=== PATIENT | female | born 1965 | race Caucasian/White ===

== ENCOUNTER 2017-01-25 08:33 | Emergency (ER) | payer OTHER ==
[~2017-01-25] VITALS: Ht 157.4 cm; Wt 53.5 kg
[~2017-01-25 08:33] MED LIST: ALBUTEROL0.09 MG/A2 INH; ATARAX25 MG PO; ATIVAN; ATIVAN0.5 MG PO; ATIVAN1 MG PO; BACTRIM DS 8001 TA1 PO; CELEXA40 MG PO; CIPRO250 MG PO; CIPRO500 MG PO; CLARITIN-D 12 H1 TAB PO; CLARITIN10 MG PO; HYCODAN 1.5 MG480 M1 PO; HYDROCODONE BIT1 T11 PO; IBU-8800 MG PO; KEFLEX500 MG PO; MEDROL DOSEPAK4 MG PO; MOTRIN800 MG PO; NAFTIN1% TP; NEURONTIN300 MG PO; NORCO 5-325 TA1 EACH PO; PLAQUENIL200 MG PO; PREDNICOT20 MG PO; PREDNISONE20 MG PO; PREMARIN0.625 MG PO; PROVENTIL0.09 MG/AC IH; PROZAC40 MG PO; PYRIDIUM200 MG PO; TESSALON PERLE100 M1 PO; TIZANIDINE2 MG PO; TOBRADEX 0.1%-0.5 ML OPH; ULTRAM50 MG PO; VIBRAMYCIN100 MG PO; VICODIN ES 7501 TAB PO; VISTARIL25 MG PO; VOLTAREN50 M1 PO; ZITHROMAX Z PA250 MG PO; ZYRTEC10 M1 PO; [UNRECOGNIZED DRUG - OTHER] TP
[2017-01-25] MEDS ORDERED: NAPROSYN500 MG PO (08:56)
[2017-01-25] MEDS ORDERED: CYCLOBENZAPRINE10 MG PO (08:56)
== END 2017-01-25 09:14 | disposition home or self-care (01) ==
LOC: ED 08:33
DX: M54.2 Cervicalgia (principal); Z88.0 Allergy status to penicillin; Z88.2 Allergy status to sulfonamides; Z79.899 Other long term (current) drug therapy

== ENCOUNTER 2017-01-30 13:31 | Emergency (ER) | payer OTHER ==
[~2017-01-30] VITALS: Ht 157.4 cm; Wt 53.5 kg
[~2017-01-30 13:31] MED LIST changes: +CYCLOBENZAPRINE10 MG PO; +NAPROSYN500 MG PO
== END 2017-01-30 15:40 | disposition home or self-care (01) ==
LOC: ED 13:31
DX: M54.2 Cervicalgia (principal); M25.512 Pain in left shoulder; G89.29 Other chronic pain; Z79.899 Other long term (current) drug therapy; Z88.0 Allergy status to penicillin; Z88.2 Allergy status to sulfonamides

== ENCOUNTER 2019-04-02 17:23 | Emergency (ER) | payer OTHER ==
[~2019-04-02] VITALS: Ht 152.4 cm; Wt 71.7 kg
[~2019-04-02 17:23] MED LIST changes: +ARIPIPRAZOLE15 MG PO; +CLINDAMYCIN HC300 MG PO; +CLONAZEPAM1 MG PO; +DOXEPIN HCL25 MG PO; +LAMOTRIGINE100 MG PO
[2019-04-02] MEDS ORDERED: NAPROSYN500 MG PO (18:11)
[2019-04-02] MEDS ORDERED: CLEOCIN HCL150 MG PO (18:11)
== END 2019-04-02 18:16 | disposition home or self-care (01) ==
LOC: ED 17:23
DX: K04.7 Periapical abscess without sinus (principal); Z88.0 Allergy status to penicillin; Z88.2 Allergy status to sulfonamides; Z79.2 Long term (current) use of antibiotics; Z79.899 Other long term (current) drug therapy

== ENCOUNTER 2019-09-15 08:46 | Emergency (ER) | payer OTHER ==
[~2019-09-15] VITALS: Ht 160 cm; Wt 72.6 kg
[~2019-09-15 08:46] MED LIST changes: +CLEOCIN HCL150 MG PO
[2019-09-15] MEDS ORDERED: CLINDAMYCIN HC300 MG PO (08:58)
[2019-09-15] MEDS ORDERED: Motrin,Rufen800 MG PO (09:01)
== END 2019-09-15 09:01 | disposition home or self-care (01) ==
LOC: ED 08:46
DX: K04.7 Periapical abscess without sinus (principal); K02.9 Dental caries, unspecified; G43.909 Migraine, unspecified, not intractable, without status migrainosus; M79.7 Fibromyalgia; Z88.0 Allergy status to penicillin; Z88.2 Allergy status to sulfonamides; Z79.899 Other long term (current) drug therapy

== ENCOUNTER 2019-11-14 15:00 | Inpatient (IN) | payer OTHER ==
[~2019-11-14] VITALS: Ht 157.4 cm; Wt 75.6 kg
[~2019-11-14 15:00] MED LIST changes: +Motrin,Rufen800 MG PO
[2019-11-14 15:09] VITALS: BP 134/67
--- NOTE | 2019-11-14 15:12 | NUR ---
PATIENT DENIES ANY WOUNDS A&OX4.
--- NOTE | 2019-11-14 15:13 | NUR ---
PATIENT NC INCREASED FROM 2L TO 3L AT THIS TIME.
[2019-11-14 15:36] LABS: BASO # 0.1 10*3/uL (0.0-0.1); BASO % 0.3 % (0.0-1.0); EOS # 0.2 10*3/uL (0.0-0.4); EOS % 1.1 % (1.0-4.0); HEMOGLOBIN 13.9 g/dl (12.0-16.0); LYMPH # 1.9 10*3/uL (1.3-4.4); LYMPH % 10.1 % (27.0-41.0); MEAN CELL VOLUME 97.3 fl (81.0-99.0); MEAN CORPUSCULAR HGB 31.4 pg (27.0-31.0); MEAN CORPUSCULAR HGB CONC 32.3 g/dl (33.0-37.0); MEAN PLATELET VOLUME 11.3 fl (9.6-12.3); MONO % 5.7 % (3.0-9.0); NEUT # 15.1 10*3/uL (2.3-7.9); NEUT % 82.3 % (47.0-73.0); PLATELET COUNT AUTOMATED 313 10*3/uL (130-400); RED BLOOD COUNT 4.42 10*6/uL (4.10-5.10); RED CELL DISTRI WIDTH 15.3 % (0-14.5); WHITE BLOOD COUNT 18.3 10*3/uL (4.8-10.8)
[2019-11-14 15:48] LABS: ACT PARTIAL THROMBO TIME 33.1 SECONDS (20.0-32.1); INTERNATIONAL NORM RATIO 0.9 (2.0-3.5)
[2019-11-14 15:54] LABS: ALBUMIN 3.3 gm/dl (3.1-4.5); ALKALINE PHOSPHATASE 98 U/L (45-117); BUN 12 mg/dl (7-24); CHLORIDE 105 mmol/L (98-107); CREATININE 1.13 mg/dL (0.55-1.02); POTASSIUM 3.6 mmol/L (3.5-5.1); SGOT/AST 34 IU/L (3-35); SGPT/ALT 23 U/L (12-78); SODIUM 137 mmol/L (136-145); TOTAL PROTEIN 8.8 gm/dL (6.4-8.2)
[2019-11-14 15:56] LABS: TROPONIN I < 0.015 ng/ml (<0.045)
[2019-11-14 16:29] LABS: ABG BASE EXCESS -1.4 mmol/L (-2.0-2.0); ARTERIAL BLOOD GAS PH 7.421 (7.35-7.45)
--- NOTE | 2019-11-14 17:20 | NUR ---
CCA 54, admitted to , under the services of ARCHIE Storm DO with a diagnosis of COPD, INFLUENZA A. Chief complaint is SOB, CHEST PAIN. Patient arrived via ambulatory from ER. Monitor applied. Initial assessment completed. Vital signs taken and recorded. ARCHIE STORM DO notified of admission to the unit. Orders received. See assessment for past medical history, medications and allergies. Patient and/or family oriented to unit. [address] visitation policy reviewed. Clothing/patient valuable form completed. CARMINE MARTINEZ
[2019-11-14 17:30] VITALS: BP 130/74
[2019-11-14] MEDS ORDERED: ESCITALOPRAM OX20 MG PO (17:35)
[2019-11-14] MEDS ORDERED: ASPIRIN CHEWABL81 MG PO (17:36)
--- NOTE | 2019-11-14 17:36 | NUR ---
MEDS REVIEWED WITH PATIENT AND UPDATED PER POLICY. UNABLE TO VERIFY WITH PHARMACY DUE TO PHARMACY BEING CLOSED AT THIS TIME.
--- NOTE | 2019-11-14 17:45 | NUR ---
NOTIFIED OF CONSULT.
--- NOTE | 2019-11-14 17:55 | NUR ---
PT MEDICATED WITH PO NORCO AND IV ZOFRAN PER PRN ORDER FOR C/O GENERALIZED DISCOMFORT AND NAUSEA. WILL MONITOR EFFECTIVENESS. IV ATB INFUSING PER ORDER. WILL MONITOR. CALL LIGHT WITHIN REACH.
[2019-11-14] MEDS ORDERED: 'CLONIDINE0.1 MG PO (18:08)
[2019-11-14] MEDS ORDERED: KLONOPIN2 M1 PO (18:10)
[2019-11-14 20:00] VITALS: BP 126/76
--- NOTE | 2019-11-14 23:42 | NUR ---
PT UPSET ABOUT HOME MEDS NOT BEING ORDERED. DISCUSSED PT'S REQUEST FOR HOME MEDS WITH . AWARE OF NEED TO VERIFY HOME MEDS WITH PHARMACY. PT REQUESTING DOXEPIN AND CLONIDINE TONIGHT. OKAY TO ORDER 1X DOSE OF THESE MEDICATIONS.
[2019-11-15] VITALS: BP 109/69
[2019-11-15 01:06] LABS: BILIRUBIN NEGATIVE (NEGATIVE); BLOOD 3+ (NEGATIVE); CLARITY CLEAR (CLEAR); COLOR STRAW (YELLOW); GLUCOSE NEGATIVE (NEGATIVE); KETONE NEGATIVE (NEGATIVE); LEUKO ESTERASE NEGATIVE (NEGATIVE); NITRITE NEGATIVE (NEGATIVE); PH 6.5 (5.0-9.0); SPECIFIC GRAVITY 1.005 (1.005-1.030); UROBILINOGEN 0.2 E.U./dl (0.2-1.0)
[2019-11-15 01:08] LABS: BACTERIA 2+; RBC 21-30 rbc/hpf (0-2)
--- NOTE | 2019-11-15 05:23 | NUR ---
PT MEDICATED WITH NORCO PER PRN ORDER FOR C/O PAIN IN RIBS FROM COUGHING AND HEADACHE RATED 5/10. WILL MONITOR EFFECTIVENESS.
[2019-11-15 06:15] LABS: BUN 12 mg/dl (7-24); CHLORIDE 110 mmol/L (98-107); CREATININE 0.87 mg/dL (0.55-1.02); POTASSIUM 4.3 mmol/L (3.5-5.1); SODIUM 141 mmol/L (136-145)
[2019-11-15 06:23] LABS: HEMOGLOBIN 11.9 g/dl (12.0-16.0); MEAN CELL VOLUME 97.6 fl (81.0-99.0); MEAN CORPUSCULAR HGB 31.4 pg (27.0-31.0); MEAN CORPUSCULAR HGB CONC 32.2 g/dl (33.0-37.0); MEAN PLATELET VOLUME 11.3 fl (9.6-12.3); PLATELET COUNT AUTOMATED 294 10*3/uL (130-400); RED BLOOD COUNT 3.79 10*6/uL (4.10-5.10); RED CELL DISTRI WIDTH 15.4 % (0-14.5); WHITE BLOOD COUNT 18.7 10*3/uL (4.8-10.8)
[2019-11-15 06:46] LABS: PLATELET SUFFICIENCY NORMAL (NORMAL); TOTAL CELLS COUNTED 100 #CELLS
[2019-11-15 08:05] VITALS: BP 102/56
--- NOTE | 2019-11-15 09:00 | NUR ---
[employer] in to talk to patient. Patient states lives at home with boyfriend. There are no steps in the home. Physician: dariela chandler [facility]: [facility] Home health services: none Patient's level of ADLs: INDEPENDENT Patient has working utilities: all working DME: none Follow-up physician's appointment after d/c: will be made by hospitalist nurse director upon discharge Does patient want to access PORTAL?: no Discharge plan discussed with patient, she states she lives at home with boyfriend, she is independent in adls and ambulation, she states she will return home when medically stable and denies any home needs. JAMIE MCCALLUM
--- NOTE | 2019-11-15 10:35 | NUR ---
[place] given for patient c/o pain in her ribs and back. Will monitor.
[2019-11-15 12:00] VITALS: BP 113/60
--- NOTE | 2019-11-15 12:10 | NUR ---
Spoke with pharmacist at [facility] to update patients home med list.
[2019-11-15] MEDS ORDERED: PROTONIX40 MG PO (12:17)
[2019-11-15] MEDS ORDERED: NEURONTIN300 MG PO (12:18)
[2019-11-15] MEDS ORDERED: TRAMADOL HCL50 MG PO (12:19)
[2019-11-15] MEDS ORDERED: SOMA350 MG PO (12:22)
[2019-11-15] MEDS ORDERED: PROVERA10 MG PO (12:22)
--- NOTE | 2019-11-15 12:25 | NUR ---
Notified of updated med list see new orders.
[2019-11-15 16:00] VITALS: BP 108/64
--- NOTE | 2019-11-15 19:58 | NUR ---
IV ABX INFUSION COMPLETE. PT DENIES ANY NEEDS AT PRESENT TIME. WILL MONITOR. CALL LIGHT IN REACH. O2 IN USE.
[2019-11-15 20:00] VITALS: BP 102/61
[2019-11-15 22:45] VITALS: BP 108/64
[2019-11-16] VITALS: BP 111/62
--- NOTE | 2019-11-16 04:27 | NUR ---
ULTRAM GIVEN PER PATIENT REQUEST FOR COMPLAINTS OF PAIN. WILL ASSESS EFFECTIVENESS.
[2019-11-16 07:02] LABS: BASO % 0.1 % (0.0-1.0); HEMATOCRIT 36.1 % (37.0-47.0); HEMOGLOBIN 11.2 g/dl (12.0-16.0); LYMPH # 1.9 10*3/uL (1.3-4.4); LYMPH % 14.6 % (27.0-41.0); MEAN CELL VOLUME 100.3 fl (81.0-99.0); MEAN CORPUSCULAR HGB 31.1 pg (27.0-31.0); MEAN PLATELET VOLUME 11.4 fl (9.6-12.3); MONO # 0.6 10*3/uL (0.1-1.0); MONO % 4.8 % (3.0-9.0); NEUT # 10.4 10*3/uL (2.3-7.9); NEUT % 79.6 % (47.0-73.0); PLATELET COUNT AUTOMATED 284 10*3/uL (130-400); RED CELL DISTRI WIDTH 15.9 % (0-14.5); WHITE BLOOD COUNT 13.1 10*3/uL (4.8-10.8)
[2019-11-16 07:12] LABS: BUN 20 mg/dl (7-24); CHLORIDE 106 mmol/L (98-107); CREATININE 0.79 mg/dL (0.55-1.02); POTASSIUM 4.9 mmol/L (3.5-5.1); SODIUM 138 mmol/L (136-145)
--- NOTE | 2019-11-16 08:24 | NUR ---
KLONOPIN GIVEN FOR C/O ANXIETY. WILL MONITOR.
--- NOTE | 2019-11-16 09:00 | NUR ---
case management visits with patient, she stated she will return home when medically stable and denies any home needs, case management will follow
--- NOTE | 2019-11-16 09:30 | NUR ---
KLONOPIN EFFECTIVE PER PT.
--- NOTE | 2019-11-16 12:57 | NUR ---
MEDICATED WITH ULTRAM PO PER PRN ORDER, SEE EMAR. FOR C/O HEADACHE, RATES PAIN 9 ON PAIN SCALE 0-10. CALL LIGHT IN REACH.
--- NOTE | 2019-11-16 14:00 | NUR ---
ULTRAM EFFECTIVE PER PT.
[2019-11-16 16:00] VITALS: BP 109/63
[2019-11-16 20:00] VITALS: BP 121/71
[2019-11-17] VITALS: BP 116/66
--- NOTE | 2019-11-17 03:43 | NUR ---
PT MEDICATED WITH PO ULTRAM PER PRN ORDER FOR C/O HEADACHE AND RIB PAIN RATED 9/10. WILL MONITOR. CALL LIGHT IN REACH.
--- NOTE | 2019-11-17 05:00 | NUR ---
EARLIER ULTRAM EFFECTIVE PER PT. FRESH GINGERALE AND ICE PROVIDED PER PT REQUEST. DENIES ANY OTHER NEEDS AT PRESENT TIME. WILL MONITOR. CALL LIGHT IN REACH.
[2019-11-17 08:00] VITALS: BP 125/61; BP 130/63
--- NOTE | 2019-11-17 08:54 | NUR ---
MEDICATED WITH PRN KLONOPIN PER ORDER AND REQUEST.
--- NOTE | 2019-11-17 09:00 | NUR ---
case management visits with patient, she states she will return home when medically stable and denies any home needs
[2019-11-17 12:00] VITALS: BP 119/78
--- NOTE | 2019-11-17 13:06 | NUR ---
MEDICATED WITH PRN ULTRAM AND TESSALON KEAGAN PER ORDERS AND REQUEST.
[2019-11-17 16:00] VITALS: BP 129/74
[2019-11-17 20:00] VITALS: BP 130/81
--- NOTE | 2019-11-17 22:10 | NUR ---
ULTRAM GIVEN PER PATIENT REQUEST FOR BREAKTHROUGH PAIN IN HER HEAD RATED 8/10. WILL ASSESS EFFECTIVENESS.
--- NOTE | 2019-11-17 22:52 | NUR ---
KLONOPIN GIVEN PER PATIENT REQUEST FOR COMPLAINTS OF ANXIETY. WILL ASSESS EFFECTIVENESS.
--- NOTE | 2019-11-17 23:51 | NUR ---
ULTRAM AND KLONOPIN EFFECTIVE PER PATIENT. PATIENT RESTING QUIETLY IN BED. NO FURTHER COMPLAINTS. WILL CONTINUE TO MONITOR.
[2019-11-18] VITALS (9 sets, daily range): BP systolic 119–141; BP diastolic 64–86
--- NOTE | 2019-11-18 00:18 | NUR ---
PRN MEDICATIONS EFFECTIVE. PATIENT RESTING QUIETLY IN BED. NO FURTHER COMPLAINTS. WILL CONTINUE TO MONITOR.
--- NOTE | 2019-11-18 00:48 | NUR ---
24 HR chart check completed.
[2019-11-18 06:42] LABS: HEMATOCRIT 34.9 % (37.0-47.0); HEMOGLOBIN 11.2 g/dl (12.0-16.0); MEAN CELL VOLUME 98.3 fl (81.0-99.0); MEAN CORPUSCULAR HGB 31.5 pg (27.0-31.0); MEAN CORPUSCULAR HGB CONC 32.1 g/dl (33.0-37.0); PLATELET COUNT AUTOMATED 295 10*3/uL (130-400); RED BLOOD COUNT 3.55 10*6/uL (4.10-5.10); RED CELL DISTRI WIDTH 15.7 % (0-14.5); WHITE BLOOD COUNT 10.7 10*3/uL (4.8-10.8)
[2019-11-18 07:06] LABS: TOTAL CELLS COUNTED 100 #CELLS
[2019-11-18 07:07] LABS: PLATELET SUFFICIENCY NORMAL (NORMAL); SPHEROCYTES FEW
[2019-11-18 07:23] LABS: CHLORIDE 104 mmol/L (98-107); POTASSIUM 4.8 mmol/L (3.5-5.1); SODIUM 139 mmol/L (136-145)
[2019-11-18 07:28] LABS: BUN 18 mg/dl (7-24); CREATININE 0.93 mg/dL (0.55-1.02)
--- NOTE | 2019-11-18 09:00 | NUR ---
case management visits with patient, she states she will be returning home when stable and denies any home needs
[2019-11-19] VITALS: BP 111/78
--- NOTE | 2019-11-19 02:17 | NUR ---
PRN ULTRAM GIVEN FOR PT COMPLAINTS OF HEADACHE RATING IT 7/10. CALL LIGHT WITHIN REACH, WILL MONITOR
--- NOTE | 2019-11-19 03:07 | NUR ---
PRN MEDICATION APPEARS EFFECTIVE, PT SLEEPING
[2019-11-19 06:24] LABS: HEMATOCRIT 39.6 % (37.0-47.0); HEMOGLOBIN 12.5 g/dl (12.0-16.0); MEAN CELL VOLUME 97.5 fl (81.0-99.0); MEAN CORPUSCULAR HGB 30.8 pg (27.0-31.0); MEAN CORPUSCULAR HGB CONC 31.6 g/dl (33.0-37.0); MEAN PLATELET VOLUME 10.6 fl (9.6-12.3); NUCLEATED RED BLOOD CELL 0.1 % (0.0-0.0); PLATELET COUNT AUTOMATED 341 10*3/uL (130-400); RED BLOOD COUNT 4.06 10*6/uL (4.10-5.10); RED CELL DISTRI WIDTH 15.2 % (0-14.5)
[2019-11-19 06:50] LABS: TOTAL CELLS COUNTED 100 #CELLS
[2019-11-19 06:51] LABS: PLATELET SUFFICIENCY NORMAL (NORMAL); TARGET CELLS FEW
[2019-11-19 06:52] LABS: BUN 20 mg/dl (7-24); CHLORIDE 101 mmol/L (98-107); SODIUM 136 mmol/L (136-145)
--- NOTE | 2019-11-19 07:46 | NUR ---
24 HR CHART CHECK COMPLETE.
[2019-11-19 08:00] VITALS: BP 117/84
--- NOTE | 2019-11-19 08:31 | NUR ---
IN TO SEE PT AT THIS TIME. SHE IS SITTING UP IN BED EATING BREAKFAST AND STATES THAT SHE IS FEELING MUCH BETTER. 2L O2 VIA NC IS IN USE. RESPA RE EASY AND NONLABORED. BED IS LOW, CALL LIGHT WITHIN REACH. WILL CONTINUE TO MONITOR.
--- NOTE | 2019-11-19 09:00 | NUR ---
case management visits with patient, she will return home when medically stable and denies any home needs, case management will follow
--- NOTE | 2019-11-19 10:00 | NUR ---
HOME O2 ASSESSMENT: PRE BP: 121/86, HR 87, RR 20, PULSE OX 90% ON ROOM AIR AT REST. AMBULATED PATIENT 1/2 LAP IN HALLWAY, PULSE OX 87% ON ROOM AIR WHILE AMBULATING. PLACED 2 L/M ON PATIENT, SAT >93%-94% WHILE AMBULATING. POST BP: 133/81, HR 80, RR 20, PULSE OX 96% ON 2 L/M AT REST. RN NOTIFIED.
[2019-11-19 12:00] VITALS: BP 129/75
[2019-11-19 15:04] LABS: ACID FAST SPEC PROCESSING Concentration (.)
[2019-11-19 16:00] VITALS: BP 123/77
[2019-11-19 20:00] VITALS: BP 135/78
--- NOTE | 2019-11-19 21:40 | NUR ---
24 HOUR CHART CHECK COMPLETE
[2019-11-20] VITALS: BP 113/72
[2019-11-20 07:05] LABS: HEMATOCRIT 37.8 % (37.0-47.0); HEMOGLOBIN 12.1 g/dl (12.0-16.0); MEAN CELL VOLUME 97.4 fl (81.0-99.0); MEAN CORPUSCULAR HGB 31.2 pg (27.0-31.0); MEAN PLATELET VOLUME 10.6 fl (9.6-12.3); NUCLEATED RED BLOOD CELL 0.1 % (0.0-0.0); PLATELET COUNT AUTOMATED 346 10*3/uL (130-400); RED BLOOD COUNT 3.88 10*6/uL (4.10-5.10); RED CELL DISTRI WIDTH 15.3 % (0-14.5); WHITE BLOOD COUNT 14.2 10*3/uL (4.8-10.8)
[2019-11-20 07:28] LABS: BUN 23 mg/dl (7-24); CHLORIDE 101 mmol/L (98-107); CREATININE 0.97 mg/dL (0.55-1.02); POTASSIUM 4.6 mmol/L (3.5-5.1); SODIUM 135 mmol/L (136-145)
[2019-11-20 07:44] LABS: PLATELET SUFFICIENCY NORMAL (NORMAL); TOTAL CELLS COUNTED 100 #CELLS
[2019-11-20 08:00] VITALS: BP 134/87
--- NOTE | 2019-11-20 08:15 | NUR ---
PT SAT IS 95%, AT REST, WITH 2L/M NC APPLIED. SAT 95-96%, RA, AT REST. SAT 93%, RA DURING AMBULATION. REQUESTED AMBULATION AND PRESENT DURING AMBULATION. SLIGHT SOB NOTED WHEN BACK TO ROOM, OTHERWISE TOLERATED WELL.
--- NOTE | 2019-11-20 08:30 | NUR ---
Patient resting quietly with no c/o discomfort. Respirations easy and regular. Isolation precautions maintained. Vital signs stable. No overt distress. DEVAN HERNANDEZ R
[2019-11-20] MEDS ORDERED: BENZONATATE100 M1 PO (10:34)
[2019-11-20] MEDS ORDERED: MUCINEX1200 M1 PO (10:34)
[2019-11-20] MEDS ORDERED: PREDNISONE10 MG PO (10:34)
[2019-11-20] MEDS ORDERED: AVPAK AZITHROM250 MG PO (10:34)
--- NOTE | 2019-11-20 10:55 | NUR ---
Discharge instructions reviewed with patient/family. Patient receptive and verbalizes understanding. Follow-up care arranged. Written instructions given to patient/family. DEVAN HERNANDEZ
== END 2019-11-20 10:55 | disposition home or self-care (01) | DRG 871 ==
LOC: ED 15:00 → 4E 16:12 → EDHOLD 16:12 → 4E 16:33 → 5E 11-18 19:21
PROVIDERS: Emergency Medicine; Family Medicine; Internal Medicine Critical Care Medicine; Student in an Organized Health Care Education/Training Program; ADMIT Internal Medicine
PROC: 0BC48ZZ Extirpation of Matter from Right Upper Lobe Bronchus, Via Natural or Artificial Opening Endoscopic (ICD-10-PCS; principal; 2019-11-18)
PROC: 0BC98ZZ Extirpation of Matter from Lingula Bronchus, Via Natural or Artificial Opening Endoscopic (ICD-10-PCS; principal; 2019-11-18)
PROC: 0BC58ZZ Extirpation of Matter from Right Middle Lobe Bronchus, Via Natural or Artificial Opening Endoscopic (ICD-10-PCS; principal; 2019-11-18)
PROC: 0BC18ZZ Extirpation of Matter from Trachea, Via Natural or Artificial Opening Endoscopic (ICD-10-PCS; principal; 2019-11-18)
PROC: 0BCB8ZZ Extirpation of Matter from Left Lower Lobe Bronchus, Via Natural or Artificial Opening Endoscopic (ICD-10-PCS; principal; 2019-11-18)
PROC: 0BC38ZZ Extirpation of Matter from Right Main Bronchus, Via Natural or Artificial Opening Endoscopic (ICD-10-PCS; principal; 2019-11-18)
PROC: 0BC88ZZ Extirpation of Matter from Left Upper Lobe Bronchus, Via Natural or Artificial Opening Endoscopic (ICD-10-PCS; principal; 2019-11-18)
PROC: 0BC78ZZ Extirpation of Matter from Left Main Bronchus, Via Natural or Artificial Opening Endoscopic (ICD-10-PCS; principal; 2019-11-18)
PROC: 0BC68ZZ Extirpation of Matter from Right Lower Lobe Bronchus, Via Natural or Artificial Opening Endoscopic (ICD-10-PCS; principal; 2019-11-18)
DX: A41.9 Sepsis, unspecified organism (principal); N17.0 Acute kidney failure with tubular necrosis; J44.0 Chronic obstructive pulmonary disease with (acute) lower respiratory infection; J44.1 Chronic obstructive pulmonary disease with (acute) exacerbation; J45.901 Unspecified asthma with (acute) exacerbation; E87.1 Hypo-osmolality and hyponatremia; E87.8 Other disorders of electrolyte and fluid balance, not elsewhere classified; F17.200 Nicotine dependence, unspecified, uncomplicated; E66.9 Obesity, unspecified; R65.20 Severe sepsis without septic shock; J20.9 Acute bronchitis, unspecified; R73.9 Hyperglycemia, unspecified; G89.29 Other chronic pain; F17.210 Nicotine dependence, cigarettes, uncomplicated; F41.1 Generalized anxiety disorder; J11.1 Influenza due to unidentified influenza virus with other respiratory manifestations; F31.9 Bipolar disorder, unspecified; Z68.31 Body mass index [BMI] 31.0-31.9, adult; Z71.6 Tobacco abuse counseling; Z88.0 Allergy status to penicillin; Z88.2 Allergy status to sulfonamides